=== PATIENT | female | born 1985 | race Caucasian/White ===

== ENCOUNTER 2016-07-23 05:46 | Day surgery (SDC) | payer OTHER ==
[2016-07-23] MEDS ORDERED: ceFAZolin 2 GM/DEXTROSE 100 ML IV ONE (06:00)
[2016-07-23] MEDS ORDERED: LR 1,000 ML IV ONE ×2 (06:00→06:38)
[2016-07-23] MEDS ORDERED: LIDOCAINE 1% 5 ML SDV ONE (06:16)
[2016-07-23] MEDS ORDERED: LIDOCAINE 1% 5 ML SDV ID PRN (06:38)
[2016-07-23] MEDS ORDERED: MIDAZOLAM 2 MG/2 ML VIAL ONE (07:06)
[2016-07-23] MEDS ORDERED: PROPOFOL/EMULSION 500 MG/50 ML BOTTLE IV ONE (07:18)
[2016-07-23] MEDS ORDERED: fentaNYL 250 MCG/5 ML INJ ONE (07:21)
[2016-07-23] MEDS ORDERED: VASOPRESSIN 20 UNIT/ML VIAL ONE (07:40)
[2016-07-23] MEDS ORDERED: SKIN ADHESIVE (DERMABOND) 1 EACH TP ONE (07:40)
[2016-07-23] MEDS ORDERED: BUPIVACAINE/EPI 0.5% 30 ML SDV ONE (07:40)
[2016-07-23] MEDS ORDERED: ONDANSETRON 4 MG/2 ML VIAL ONE (07:42)
[2016-07-23] MEDS ORDERED: LIDOCAINE 2% 5 ML SDV ONE (07:42)
[2016-07-23] MEDS ORDERED: ROCURONIUM 100 MG/10 ML VIAL ONE (07:42)
[2016-07-23] MEDS ORDERED: DEXAMETHASONE 4 MG/ML VIAL ONE (07:42)
[2016-07-23] MEDS ORDERED: NEOSTIGMINE METHYLSULFATE 5 MG/5 ML SYR ONE (09:11)
[2016-07-23] MEDS ORDERED: GLYCOPYRROLATE 0.2 MG/1 ML VIAL ONE ×2 (09:11)
[2016-07-23] MEDS ORDERED: fentaNYL 100 MCG/2 ML INJ ONE (09:42)
[2016-07-23] MEDS ORDERED: OXYCODONE/APAP 5/325 TAB ONE (10:48)
[2016-07-23] MEDS ORDERED: KETOROLAC 15 MG/1 ML SDV ONE (11:38)
[2016-07-23] MEDS ORDERED: HYDROmorphONE/DILAUDID 1 MG/ML SYR IVP PRN (11:40)
[2016-07-23] MEDS ORDERED: OXYCODONE/APAP 5/325 TAB PO PRN (11:41)
[2016-07-23] MEDS ORDERED: KETOROLAC 30 MG/1 ML SDV IVP ONE (12:00)
--- NOTE | 2016-07-23 12:43 | GOP ---
[f rep st] OPERATIVE REPORT DATE OF OPERATION: 07/23/2016 SURGEON: Rashad Shin MD COMMANDING OFFICER GARAGE: Jesenia Wilson CFA ANESTHESIA: General. PREOPERATIVE DIAGNOSIS: 1. Intramural fibroid. 2. Menorrhagia. 3. Dysmenorrhea. POSTOPERATIVE DIAGNOSIS: 1. Intramural fibroid. 2. Menorrhagia. 3. Dysmenorrhea. 4. Endometriosis. 5. Adnexal mass. PROCEDURE PERFORMED: 1. Robotic-assisted laparoscopic excision of endometriosis in anterior and posterior cul-de-sacs, bilateral ovarian fossae overlying both ureters, and posterior cervix. 2. Excision of left adnexal mass. 3. Robotic-assisted laparoscopic myomectomy. FINDINGS: SPECIMENS: 1. Left adnexal mass. 2. Pelvic peritoneum with endometriosis. 3. Uterine fibroid. ESTIMATED BLOOD LOSS: Scant. DESCRIPTION OF PROCEDURE: The patient was taken the operating room where she was identified. General anesthesia was administered and found to be adequate. She was placed in the lithotomy position and prepared and draped in normal sterile fashion. A Hulka tenaculum was placed in the uterus for manipulation. A Buckner catheter was then placed. A 1 cm intraumbilical incision was made with a scalpel. The Veress needle with the CO2 gas flowing was advanced into the peritoneal cavity. The abdomen was then insufflated with carbon dioxide gas. The 12 mm trocar followed by the laparoscope were then inserted. The upper abdomen was unremarkable. There was no evidence of endometriosis on either diaphragm or upper abdominal bowel nor abdominal wall. Two lateral ports were placed, one on the right and one on the left under direct visualization. The patient was then placed in Trendelenburg position and the da Luis Eduardo robot docked on the left side. The instruments were then brought into the abdominal cavity under direct visualization. The patient had a right anterior intramural fibroid. Endometriosis was seen in the anterior and posterior cul-de-sacs as well as both ovarian fossae overlying both ureters. The peritoneum with endometriosis was completely excised. All specimens were sent to Pathology. The patient was found to have a left adnexal mass which appeared to be arising from the left tube. This was gently dissected free and also sent to Pathology. The base of the fibroid was injected with a dilute solution of vasopressin and saline. The overlying serosal surface was incised. The dissection was carried down to the fibroid. Gentle sharp and blunt dissection was used to completely excise the fibroid. There did not appear to be any extension of the fibroid into the endometrial cavity. The muscularis was closed in 3 layers using a running 2-0 V-Loc suture. The area was hemostatic. Interceed was placed over the incision to try to minimize postoperative adhesions. The specimen was then removed through the umbilical port after slight extension. The fascia was then closed with 0 Vicryl, the skin with 4-0 Monocryl and surgical adhesive. Anesthesia was reversed and the patient taken the PACU awake, in stable condition. COMPLICATIONS: None. DISPOSITION: Patient stable to PACU. Copy requested to: [facility] [address] [place] [address] /[id number]/[id number] MTDD
== END 2016-07-23 12:45 | disposition home or self-care (01) ==
LOC: FSGY 05:46
PROVIDERS: ATTEND Obstetrics & Gynecology
PROC: 0UB94ZZ Excision of Uterus, Percutaneous Endoscopic Approach (ICD-10-PCS; principal; 2016-07-23 07:15)
PROC: 8E0W8CZ Robotic Assisted Procedure of Trunk Region, Via Natural or Artificial Opening Endoscopic (ICD-10-PCS; 2016-07-23 07:15)
PROC: 0UBF4ZZ Excision of Cul-de-sac, Percutaneous Endoscopic Approach (ICD-10-PCS; 2016-07-23 07:15)
DX: D25.1 Intramural leiomyoma of uterus (principal); N80.3 Endometriosis of pelvic peritoneum; N83.8 Other noninflammatory disorders of ovary, fallopian tube and broad ligament; N80.8 Other endometriosis; N92.0 Excessive and frequent menstruation with regular cycle; N94.6 Dysmenorrhea, unspecified
CPT/HCPCS: 58545; 58662; C1765; J0690; J1100; J1885; J2250; J2405; J2704; J2710; J3010